=== PATIENT | male | born 1975 | race Caucasian/White ===

== ENCOUNTER 2021-02-16 17:04 | Inpatient (IN) | payer OTHER ==
[~2021-02-16] VITALS: Ht 180.3 cm; Wt 96.2 kg
[~2021-02-16 17:04] MED LIST: KETOROLAC TROME10 MG PO; PREDNISONE 20MG20 MG PO
[2021-02-16 17:57] LABS: BASOPHIL 0.4 % (0-2); EOSINOPHIL 1.4 % (0-5); HCT 37.2 % (42.0-52.0); HGB 12.4 g/dl (13.2-18.0); LYMPHOCYTE 25.3 % (15-48); MCH 30.3 pg (25.0-31.0); MCHC 33.3 g/dL (32.0-36.0); MONOCYTE 9.4 % (0-12); MPV 8.8 fL (6.0-9.5); NEUTROPHIL 63.2 % (41-80); NRBC 0; PLT 319 K/uL (150-400); RBC 4.09 M/uL (4.70-6.00); WBC 10.3 K/uL (4.0-10.5)
[2021-02-16 18:14] LABS: ALBUMIN 2.7 g/dL (3.4-5.0); BILIRUBIN - TOTAL 0.3 mg/dL (0.2-1.0); BUN/CREAT RATIO (CALC) 20.3 RATIO; CREATININE 0.69 mg/dL (0.67-1.17); GLOBULIN (CALCULATION) 4.8 g/dL; POTASSIUM 3.2 mmol/L (3.5-5.1); TOTAL PROTEIN 7.5 g/dL (6.4-8.2)
[2021-02-16 18:50] LABS: BILIRUBIN 1+ mg/dL (NEGATIVE); BLOOD NEGATIVE Ery/uL (NEGATIVE); CLARITY CLEAR (CLEAR); COLOR YELLOW (YELLOW); GLUCOSE (U) NORMAL (NORMAL); LEUKOCYTES NEGATIVE Leu/uL (NEGATIVE); NITRITE NEGATIVE (NEGATIVE); PROTEIN NEGATIVE (NEGATIVE); SPECIFIC GRAVITY >=1.030 (1.001-1.030)
[2021-02-16 19:21] LABS: LACTIC ACID 0.6 mmol/L (0.4-1.9)
[2021-02-16] MEDS ORDERED: LISINOPRIL-HCT1 EACH PO (21:00)
[2021-02-16] MEDS ORDERED: UROCIT-K10 MEQ PO (21:01)
[2021-02-17 07:20] LABS: BASOPHIL 0.4 % (0-2); EOSINOPHIL 2.1 % (0-5); HCT 34.7 % (42.0-52.0); HGB 11.6 g/dl (13.2-18.0); LYMPHOCYTE 24.1 % (15-48); MCH 30.5 pg (25.0-31.0); MCHC 33.4 g/dL (32.0-36.0); MCV 91.3 fL (78.0-100.0); MONOCYTE 10.1 % (0-12); NEUTROPHIL 62.9 % (41-80); NRBC 0; PLT 310 K/uL (150-400); RDW 13.1 % (11.5-14.0); WBC 7.9 K/uL (4.0-10.5)
[2021-02-17 08:33] LABS: ALBUMIN 2.6 g/dL (3.4-5.0); BILIRUBIN - TOTAL 0.7 mg/dL (0.2-1.0); BUN/CREAT RATIO (CALC) 10.5 RATIO; CREATININE 0.95 mg/dL (0.67-1.17); GLOBULIN (CALCULATION) 4.8 g/dL; PHOSPHORUS 3.5 mg/dL (2.6-4.7); POTASSIUM 4.2 mmol/L (3.5-5.1); TOTAL PROTEIN 7.4 g/dL (6.4-8.2)
[2021-02-18 06:01] LABS: BASOPHIL 0.5 % (0-2); EOSINOPHIL 1.5 % (0-5); HCT 34.8 % (42.0-52.0); HGB 11.8 g/dl (13.2-18.0); LYMPHOCYTE 19.7 % (15-48); MCH 30.6 pg (25.0-31.0); MCHC 33.9 g/dL (32.0-36.0); MCV 90.4 fL (78.0-100.0); MONOCYTE 9.2 % (0-12); MPV 8.9 fL (6.0-9.5); NEUTROPHIL 68.7 % (41-80); NRBC 0; PLT 322 K/uL (150-400); RBC 3.85 M/uL (4.70-6.00); WBC 8.6 K/uL (4.0-10.5)
[2021-02-18 06:32] LABS: ALBUMIN 2.5 g/dL (3.4-5.0); BILIRUBIN - TOTAL 0.5 mg/dL (0.2-1.0); BUN/CREAT RATIO (CALC) 8.5 RATIO; CREATININE 0.82 mg/dL (0.67-1.17); GLOBULIN (CALCULATION) 4.7 g/dL; MAGNESIUM 1.9 mg/dL (1.8-2.4); POTASSIUM 3.7 mmol/L (3.5-5.1); TOTAL PROTEIN 7.2 g/dL (6.4-8.2)
[2021-02-18] MEDS ORDERED: ZOSYN3.375 GM IV (13:00)
[2021-02-18] MEDS ORDERED: HEPARIN 3010 UNIT/1 IV (13:00)
--- NOTE | 2021-02-18 14:29 | NUR ---
02/18/21 A referral was made to [facility] for IV infusion per patient choice. Awaiting [facility] response re: IV meds being arranged.
--- NOTE | 2021-02-18 15:53 | NUR ---
02/18/21 1515 MIDLINE ORDER RECEIVED FOR MIDLINE INSERTION. PROCEDURE EXPLANIED TO PATIENT. PT PREPPED AND DRAPED IN STERILE FASHION. THE PT'S LEFT UPPER ARM BASILIC VEIN WAS VISUALIZED USING THE SITE RITE 6 ULTRA SOUND. A 21 GA NEEDLE WAS USED. GOOD BLOOD RETURN WAS NOTED. THE GUIDE WIRE THREADED EASILY. THE NEEDLE WAS REMOVED AND THE MIDLINE CATHETER WAS PLACED OVER THE WIRE. THE WIRE AND SHEATH WERE REMOVED. GOOD BLOOD RETURN WAS NOTED. A CONNECTOR WAS FLUSHED AND PLACED OVER THE END OF THE CATHETER. A STAT LOCK WAS PLACED ON THE CATHETER AND A STERILE BIOPATCH WAS ALSO PLACED ON THE INSERTION SITE. A STERILE SORBAVIEW WAS PLACED OVER THE MIDLINE CATHETER. PT TOLERATED WELL. PT HAS A 20GA 10 CM POWERGLIDE MIDLINE CATHETER. GOOD FOR 29 DAYS. THIS IS NOT A CENTRAL LINE. REPORT TO [facility].
== END 2021-02-18 15:42 | disposition home health service (06) | DRG 392 ==
LOC: FER 17:04 → FMS 19:13
PROVIDERS: Emergency Medicine; Nurse Practitioner; ADMIT Internal Medicine
DX: K57.20 Diverticulitis of large intestine with perforation and abscess without bleeding (principal); I10 Essential (primary) hypertension; M06.9 Rheumatoid arthritis, unspecified; Z20.822 Contact with and (suspected) exposure to COVID-19; K59.00 Constipation, unspecified; Z90.89 Acquired absence of other organs; Z98.890 Other specified postprocedural states
CPT/HCPCS: 36415; 80053; 81003; 83605; 83690; 83735; 84100; 84145; 85025; 87040; 87077; 94010; C1751; C9113; J1642; J2405; J2543; J7030; Q9967; U0002

== ENCOUNTER 2021-02-26 08:14 | Emergency (ER) | payer OTHER ==
[~2021-02-26 08:14] MED LIST changes: +HEPARIN 3010 UNIT/1 IV; +LISINOPRIL-HCT1 EACH PO; +UROCIT-K10 MEQ PO; +ZOSYN3.375 GM IV
== END 2021-02-26 09:13 | disposition home or self-care (01) ==
LOC: FER 08:14
DX: T82.594A Other mechanical complication of infusion catheter, initial encounter (principal); I10 Essential (primary) hypertension; F17.200 Nicotine dependence, unspecified, uncomplicated
CPT/HCPCS: 99283

== ENCOUNTER 2021-03-14 09:13 | Emergency (ER) | payer OTHER ==
[2021-03-14 12:39] LABS: BASOPHIL 0.2 % (0-2); EOSINOPHIL 4.6 % (0-5); HCT 38.6 % (42.0-52.0); HGB 13.1 g/dl (13.2-18.0); LYMPHOCYTE 5.9 % (15-48); MCH 29.9 pg (25.0-31.0); MCHC 33.9 g/dL (32.0-36.0); MCV 88.1 fL (78.0-100.0); MONOCYTE 2.6 % (0-12); MPV 9.4 fL (6.0-9.5); NEUTROPHIL 86.5 % (41-80); NRBC 0; PLT 168 K/uL (150-400); RBC 4.38 M/uL (4.70-6.00); RDW 13.7 % (11.5-14.0)
[2021-03-14 12:48] LABS: WBC 4.6 K/uL (4.0-10.5)
[2021-03-14 12:55] LABS: BILIRUBIN - TOTAL 0.3 mg/dL (0.2-1.0); CREATININE 0.73 mg/dL (0.67-1.17); GLOBULIN (CALCULATION) 4.9 g/dL; POTASSIUM 3.9 mmol/L (3.5-5.1); TOTAL PROTEIN 7.9 g/dL (6.4-8.2)
[2021-03-14] MEDS ORDERED: PREDNISONE20 MG PO (14:42)
[2021-03-14] MEDS ORDERED: ZYRTEC10 M3 PO (14:42)
== END 2021-03-14 15:35 | disposition home or self-care (01) ==
LOC: FER 09:13
PROVIDERS: Emergency Medicine
DX: R21 Rash and other nonspecific skin eruption (principal); T36.0X5A Adverse effect of penicillins, initial encounter
CPT/HCPCS: 36415; 80053; 84145; 85025; J1200; J2930; Q9967

== ENCOUNTER 2021-04-05 09:10 | Emergency (ER) | payer OTHER ==
[~2021-04-05 09:10] MED LIST changes: +PREDNISONE20 MG PO; +ZYRTEC10 M3 PO
[2021-04-05 10:26] LABS: BASOPHIL 0.6 % (0-2); EOSINOPHIL 1.2 % (0-5); HCT 40.1 % (42.0-52.0); HGB 13.1 g/dl (13.2-18.0); LYMPHOCYTE 20.1 % (15-48); MCH 29.4 pg (25.0-31.0); MCHC 32.7 g/dL (32.0-36.0); MCV 90.1 fL (78.0-100.0); MONOCYTE 8.5 % (0-12); MPV 9.4 fL (6.0-9.5); NEUTROPHIL 69.3 % (41-80); NRBC 0; PLT 264 K/uL (150-400); RBC 4.45 M/uL (4.70-6.00); RDW 13.8 % (11.5-14.0); WBC 6.6 K/uL (4.0-10.5)
[2021-04-05 11:01] LABS: ALBUMIN 3.1 g/dL (3.4-5.0); BILIRUBIN - TOTAL 0.4 mg/dL (0.2-1.0); BUN/CREAT RATIO (CALC) 20.3 RATIO; CREATININE 0.74 mg/dL (0.67-1.17); GLOBULIN (CALCULATION) 5.7 g/dL; POTASSIUM 4.1 mmol/L (3.5-5.1); TOTAL PROTEIN 8.8 g/dL (6.4-8.2)
[2021-04-05] MEDS ORDERED: BENTYL10 MG PO ×2 (12:05→14:58)
[2021-04-05] MEDS ORDERED: METRONIDAZOLE500 MG PO ×2 (12:05→14:57)
[2021-04-05] MEDS ORDERED: CIPRO500 MG PO ×2 (12:05→14:56)
[2021-04-05] MEDS ORDERED: KLOR-CON M 1010 MEQ PO (14:53)
[2021-04-05] MEDS ORDERED: ENBREL50 MG/1 M1 SC (14:56)
== END 2021-04-05 12:25 | disposition home or self-care (01) ==
LOC: FER 09:10
PROVIDERS: Emergency Medicine
DX: K57.32 Diverticulitis of large intestine without perforation or abscess without bleeding (principal); I10 Essential (primary) hypertension; Z88.1 Allergy status to other antibiotic agents
CPT/HCPCS: 36415; 80053; 83605; 85025; 87040; Q9967

== ENCOUNTER → 2021-04-09 | Day surgery (SDC) | payer OTHER ==
[~2021-04-09] VITALS: Ht 180.3 cm; Wt 86.2 kg
[~2021-04-09] MED LIST changes: +BENTYL10 MG PO; +CIPRO500 MG PO; +COLACE100 MG PO; +ENBREL50 MG/1 M1 SC; +KLOR-CON M 1010 MEQ PO; +METRONIDAZOLE500 MG PO
== END | disposition home or self-care (01) ==
LOC: FAS 08:37
DX: K52.9 Noninfective gastroenteritis and colitis, unspecified (principal); K63.89 Other specified diseases of intestine; K57.32 Diverticulitis of large intestine without perforation or abscess without bleeding; K59.00 Constipation, unspecified; I10 Essential (primary) hypertension; F17.200 Nicotine dependence, unspecified, uncomplicated; Z80.0 Family history of malignant neoplasm of digestive organs; Z72.89 Other problems related to lifestyle
CPT/HCPCS: J1610; J2250; J2704; J7120

== ENCOUNTER 2021-06-24 03:38 | Emergency (ER) | payer OTHER ==
[2021-06-24 03:58] LABS: BASOPHIL 0.7 % (0-2); HCT 41.7 % (42.0-52.0); HGB 14.1 g/dl (13.2-18.0); LYMPHOCYTE 24.8 % (15-48); MCH 30.1 pg (25.0-31.0); MCHC 33.8 g/dL (32.0-36.0); MCV 89.1 fL (78.0-100.0); MONOCYTE 9.5 % (0-12); MPV 8.4 fL (6.0-9.5); NEUTROPHIL 61.7 % (41-80); NRBC 0; PLT 324 K/uL (150-400); RBC 4.68 M/uL (4.70-6.00); RDW 14.8 % (11.5-14.0)
[2021-06-24 04:18] LABS: ALBUMIN 3.4 g/dL (3.4-5.0); BILIRUBIN - TOTAL 0.7 mg/dL (0.2-1.0); BUN/CREAT RATIO (CALC) 12.2 RATIO; CREATININE 0.74 mg/dL (0.67-1.17); GLOBULIN (CALCULATION) 5.3 g/dL; POTASSIUM 3.5 mmol/L (3.5-5.1); TOTAL PROTEIN 8.7 g/dL (6.4-8.2)
[2021-06-24] MEDS ORDERED: PERCOCET 5-3251 EACH PO (05:07)
[2021-06-24] MEDS ORDERED: CIPRO500 MG PO (05:07)
[2021-06-24] MEDS ORDERED: METRONIDAZOLE500 MG PO (05:07)
[2021-06-24] MEDS ORDERED: PHENERGAN25 M1 PO (05:08)
[2021-06-24 05:22] LABS: BILIRUBIN NEGATIVE (NEGATIVE); BLOOD NEGATIVE Ery/uL (NEGATIVE); CLARITY CLEAR (CLEAR); COLOR YELLOW (YELLOW); GLUCOSE (U) NORMAL (NORMAL); LEUKOCYTES NEGATIVE Leu/uL (NEGATIVE); NITRITE NEGATIVE (NEGATIVE); PROTEIN NEGATIVE (NEGATIVE)
== END 2021-06-24 05:20 | disposition home or self-care (01) ==
LOC: FER 03:38
PROVIDERS: Internal Medicine
DX: K57.32 Diverticulitis of large intestine without perforation or abscess without bleeding (principal); F17.210 Nicotine dependence, cigarettes, uncomplicated
CPT/HCPCS: 36415; 80053; 81003; 83690; 85025; J1170; J2405